=== PATIENT | male | born 1975 | race Caucasian/White ===

== ENCOUNTER 2020-06-01 16:02 | Emergency (ER) | payer BC ==
[2020-06-01 16:15] VITALS: BP 128/75; PULSE 85
[2020-06-01] MEDS: Ketorolac 60 MG/2 ML SDV IM ONE (16:54)
--- NOTE | 2020-06-01 16:59 | CR ---
[id number] RAD/RAD Lumbar Spine 2-3V EXAM: AP AND LATERAL LUMBAR SPINE. INDICATION: Low back pain. COMPARISON: No previous similar exam is available for comparison. FINDINGS: No fracture or subluxation is seen. There is preservation of height of disc spaces and vertebrae. Mild multilevel degenerative changes of the lumbar spine including endplate osteophytosis and facet arthropathy. The pedicles are intact. Surgical clips within the right upper quadrant. IMPRESSION: NO ACUTE FRACTURE OR SUBLUXATION. Michel Bruner DO 06/01/20 [id number] Thank you for allowing us to participate in the care of your patient.
--- NOTE | 2020-06-01 17:09 | EDM.PDOC ---
ED HPI GENERAL MEDICAL PROBLEM - General Chief Complaint: Back Pain or Injury Stated Complaint: SLIPPED AND FELL ON ICE, HURT BACK Time Seen by Provider: 06/01/20 16:40 Source of Information: Reports: Patient History Limitations: Reports: No Limitations - History of Present Illness INITIAL COMMENTS - FREE TEXT/NARRATIVE: 44-year-old male presents emergency room with acute onset of low back pain and right leg numbness after slipping on the ice at his home. Patient reports that he fell directly on his butt and had to sit for about 20 minutes due to the pain and numbness in his right leg. He reports he is improved particularly the numbness in his right leg. Complains of pain in his right lower back up. No prior history of back difficulties or prior history of injury. He denies any saddle paresthesias. No loss of bowel or bladder control. No weakness in his leg. He rates his back pain a 7 out of 10. Onset: Today Onset Date: 06/01/20 Duration: Minutes:, Improving Location: Reports: Back, Lower Extremity, Right Quality: Reports: Sharp Severity: Moderate Improves with: Reports: Rest Worsens with: Reports: None Context: Reports: Trauma (Slipped on ice) Associated Symptoms: Reports: No Other Symptoms lower back pain Pain Score (Numeric/FACES): 6 - Related Data Allergies Allergy/AdvReac Type Severity Reaction Status Date / Time No Known Drug Allergies Allergy Cannot Verified 06/01/20 16:14 Remember Home Meds: Home Meds predniSONE [Prednisone] 10 mg PO DAILY 06/01/20 [History] Past Medical History - Past Health History Medical/Surgical History: Denies Medical/Surgical History Cardiovascular History: Reports: High Cholesterol Respiratory History: Reports: Other (See Below) Other Respiratory History: sarcoidosis - Past Surgical History Cardiovascular Surgical History: Reports: None GI Surgical History: Reports: Cholecystectomy Social & Family History - Family History Family Medical History: No Pertinent Family History - Tobacco Use Tobacco Use Status *Q: Current Every Day Tobacco User Years of Tobacco use: 15 Packs/Tins Daily: 1 Second Hand Smoke Exposure: No - Caffeine Use Caffeine Use: Reports: Coffee - Recreational Drug Use Recreational Drug Use: No ED ROS GENERAL - Review of Systems Review Of Systems: Comprehensive ROS is negative, except as noted in HPI. ED EXAM,LOWER BACK PAIN/INJURY - Physical Exam Exam: See Below Exam Limited By: No Limitations General Appearance: Alert, No Apparent Distress, Obese Ears: Hearing Grossly Normal Nose: Normal Inspection Throat/Mouth: Normal Voice Head: Atraumatic Back Exam: Normal Inspection, Paraspinal Tenderness (Right lateral belt line) Extremities: Normal Inspection, Normal Range of Motion Neurological: Alert, Normal Mood/Affect, Normal Dorsiflexion, CN II-XII Intact, Normal Plantar Flexion, Normal Gait, Normal Reflexes, No Motor/Sensory Deficits, Oriented x 3. No: Straight Leg Raise (L), Straight Leg Raise (R), Saddle Anesthesia DTR - Lower Extremities: 1+: Knee (R), Knee (L), Ankle (R), Ankle (L) Psychiatric: Normal Affect, Normal Mood Skin Exam: Warm Lymphatic: No Adenopathy Course - Vital Signs Last Recorded V/S: Last Vital Signs Temp 98.6 F 06/01/20 16:10 Pulse 85 06/01/20 16:10 Resp 16 06/01/20 16:10 BP 128/75 06/01/20 16:10 Pulse Ox 95 06/01/20 16:10 - Orders/Labs/Meds Meds: Medications Discontinued Medications Generic Name Dose Route Start Last Admin Trade Name Freq PRN Reason Stop Dose Admin Ketorolac Tromethamine 60 mg 06/01/20 16:49 06/01/20 16:54 Toradol IM 06/01/20 16:50 60 mg ONETIME ONE Administration - Radiology Interpretation Free Text/Narrative:: Radiographs lumbar spine AP lateral Findings: No fracture or subluxation is seen. There is preservation of the height of the disc spaces and vertebrae. Mild multilevel degenerative changes of the lumbar spine including endplate osteophytosis and facet arthropathy. The pedicles are intact. Surgical clips in the right upper quadrant. Impression: No acute fracture or subluxation - Re-Assessments/Exams Free Text/Narrative Re-Assessment/Exam: 06/01/20 17:09 Patient is comfortable and reports improvement with the Toradol IM injection Departure - Departure Time of Disposition: 17:10 Disposition: Home, Self-Care 01 Condition: Good Clinical Impression: Acute low back pain due to trauma - Discharge Information Instructions: Acute Back Pain, Adult Referrals: Mila Smith MD [Primary Care Provider] - Forms: ED Department Discharge Care Plan Goals: 1. Ibuprofen 800 mg 3 times daily with food for back pain as needed 2. Flexeril 10 mg 3 times daily as needed for muscle spasms 3. Heating pad and alternating with ice as needed 4. Rest 5. If radicular leg pain develops you will need follow-up with your primary care for probable MRI lumbar spine. Sepsis Event Note (ED) - Evaluation Sepsis Screening Result: No Definite Risk - Focused Exam Vital Signs: Vital Signs Temp Pulse Resp BP Pulse Ox 06/01/20 16:10 98.6 F 85 16 128/75 95 - Assessment/Plan Assessment:: Acute low back pain due to a fall on ice Plan: 1. Ibuprofen 800 mg 3 times daily with food for back pain as needed 2. Flexeril 10 mg 3 times daily as needed for muscle spasms 3. Heating pad and alternating with ice as needed 4. Rest 5. If radicular leg pain develops you will need follow-up with your primary care for probable MRI lumbar spine.
== END 2020-06-01 17:05 | disposition home or self-care (01) ==
LOC: KA.ED 16:02
DX: M54.5 Low back pain (principal); R20.0 Anesthesia of skin; Z72.0 Tobacco use; E66.9 Obesity, unspecified; Z68.32 Body mass index [BMI] 32.0-32.9, adult; W00.0XXA Fall on same level due to ice and snow, initial encounter; Y92.009 Unspecified place in unspecified non-institutional (private) residence as the place of occurrence of the external cause
CPT/HCPCS: 72100; 96372; 99283; 99284; J1885

== ENCOUNTER 2022-11-06 19:11 | Emergency (ER) | payer BC ==
[2022-11-06] MEDS ORDERED: Bacitracin/Neomycin/Polymyxin B Oint 0.9 GM U/D Packet TOP ONE (19:25)
[2022-11-06] MEDS ORDERED: Diphtheria,Pertussis(Acell),Tetanus Vaccine 0.5 ML Syringe IM ONE (19:30)
[2022-11-06] MEDS ORDERED: Bacitracin/Neomycin/Polymyxin B Oint 0.9 GM U/D Packet ONE (19:32)
[2022-11-06 23:01] VITALS: BP 120/83; PULSE 87
== END 2022-11-06 20:14 | disposition home or self-care (01) ==
LOC: KA.ED 19:11
DX: S50.811A Abrasion of right forearm, initial encounter (principal); Z23 Encounter for immunization
CPT/HCPCS: 90471; 90715; 99283; 99283-25